=== PATIENT | female | born 1965 | race Caucasian/White ===

== ENCOUNTER 2021-12-03 05:46 | Day surgery (SDC) | payer MEDICAID ==
[2021-11-26 15:22] LABS: BASOPHILS # (AUTO) 0.1 X10'3 (0-0.2); BASOPHILS % (AUTO) 0.7 % (0-1); EOSINOPHILS # (AUTO) 0.3 X10'3 (0-0.9); EOSINOPHILS % (AUTO) 3.4 % (0-6); LYMPHOCYTES # (AUTO) 2.9 X10'3 (1.1-4.8); MEAN CORPUSCULAR HEMOGLOBIN 30.7 PG (27.0-31.0); MEAN CORPUSCULAR HGB CONC 33.6 g/dL (33.0-36.5); MEAN CORPUSCULAR VOLUME 91.5 FL (78-98); MONOCYTES # (AUTO) 0.6 X10'3 (0-0.9); MONOCYTES % (AUTO) 7.6 % (2-12); NEUTROPHILS # (AUTO) 3.8 X10'3 (1.8-7.7); NEUTROPHILS % (AUTO) 50.3 % (42-75); PRE OP HEMATOCRIT 46.3 % (35.0-45.0); PRE OP HEMOGLOBIN 15.5 g/dL (12.0-16.0); PRE OP PLATELET COUNT 238 X10'3 (140-440); RED BLOOD COUNT 5.06 X10'6 (4.20-5.60); RED CELL DISTRIBUTION WIDTH 14.3 % (11.5-14.5)
[2021-11-26 15:38] LABS: ALBUMIN 3.9 G/DL (3.4-5.0); ALKALINE PHOSPHATASE 86 IU/L (46-116); BLOOD UREA NITROGEN 16 MG/DL (7-18); BUN/CREATININE RATIO 19.5 (6.6-38.0); CALCIUM 10.3 MG/DL (8.5-10.1); CHLORIDE 104 MMOL/L (99-107); CREATININE 0.82 MG/DL (0.40-0.90); PRE OP ALT 32 U/L (30-65); PRE OP ANION GAP 9 (8-16); PRE OP AST 16 U/L (10-37); PRE OP BILIRUB, TOTAL 0.3 MG/DL (0.0-1.0); PRE OP GLUCOSE 155 MG/DL (70-104); PRE OP POTASSIUM 3.9 MMOL/L (3.4-5.1); PRE OP SODIUM 141 MMOL/L (135-145); TOTAL CARBON DIOXIDE 27.8 MMOL/L (24-32); TOTAL PROTEIN 7.9 G/DL (6.4-8.2); eGFR 72 ML/MIN
[~2021-12-03] VITALS: Ht 160 cm; Wt 148.8 kg
[2021-12-03] VITALS (7 sets, daily range): BP systolic 122–154; BP diastolic 64–98
[~2021-12-03 05:46] MED LIST: ERTU5TAB PO; GLIM2TAB6 PO; INSU100I31 SQ; LOSA50TA64 PO; famotidine 20mg tablet PO ONE; ringers solution, lacted 1,000 ML IV SCH
[2021-12-03] MEDS ORDERED: BUPIVAcaine/PF 2.5 mg/ml (0.25%) 30ml vial ONE (06:36)
[2021-12-03] MEDS ORDERED: LIDOcaine 0.5% (5mg/ml) 50ml vial ONE (07:12)
[2021-12-03] MEDS ORDERED: fentaNYL/PF 50MCG/1 ML 2ML syringe ONE (07:22)
[2021-12-03] MEDS ORDERED: midazolam 1 mg/ML 2ml injection ONE (07:25)
[2021-12-03] MEDS ORDERED: hydrALAZINE 20mg/ml inj. IV PRN (07:30)
[2021-12-03] MEDS ORDERED: labetalol 20mg/4ml (5mg/ml) syringe IV PRN (07:30)
[2021-12-03] MEDS ORDERED: morphine 2 MG/ML inj. syringe IV PRN (07:30)
[2021-12-03] MEDS ORDERED: proCHLORperazine 10 MG/2 ml inj IV PRN (07:30)
[2021-12-03] MEDS ORDERED: ringers solution, lacted 1,000 ML IV SCH (07:30)
[2021-12-03] MEDS ORDERED: ondansetron/PF 4mg/2ml inj IV PRN (07:30)
[2021-12-03] MEDS ORDERED: meperidine/PF 25mg/ml syringe IV PRN ×3 (07:30)
[2021-12-03] MEDS ORDERED: morphine 4 MG/ML inj SYRINge IV PRN (07:30)
[2021-12-03] MEDS ORDERED: ketorolac tromethamine 15mg/ml inj. IV ONE (07:30)
[2021-12-03] MEDS ORDERED: ceFAZolin inj. 2,000 MG in dextrose 5%-water 100 ML IV ONE (07:34)
[2021-12-03] MEDS ORDERED: clindamycin-Cleocin 900mg/D5W 50 ML IV ONE (07:39)
[2021-12-03] MEDS ORDERED: propofol inj 20 ML IV ONE (07:49)
[2021-12-03] MEDS ORDERED: BUPIVAcaine/PF 2.5 mg/ml (0.25%) 30ml vial IJ ONE (07:54)
--- NOTE | 2021-12-03 08:07 | NUR ---
Received from OR via [facility], accompanied by Anesthesiologist and report given by BA Anesthesiologist. PATIENT WAKING UP, DENIES PAIN, V/S WNL, PIV 20G TO R HAND, LEFT WRIST DRESSING CDI. ICE AND ELEVATED LUE. Addendum: 12/03/21 at 0825 by Malcolm Sheth RN Amended: Links added.
[2021-12-03] MEDS ORDERED: HYDROcodone/acetaminophen 10/325mg tab PO PRN (08:10)
--- NOTE | 2021-12-03 08:57 | NUR ---
ALL DISCHARGE CRITERIA HAS BEEN MET. VSS, PAIN AT A TOLERABLE LEVEL, ABLE TO SAFELY AMBULATE AND TRANSFER SELF. IV TAKEN OUT WITHOUT ANY COMPLICATIONS. ALL DISCHARGE INSTRUCTIONS COVERED WITH PATIENT AND ALL QUESTIONS ANSWERED. PATIENT TAKEN OUT VIA WHEELCHAIR WITH ALL BELONGINGS TO PERSONAL VEHICLE WHERE FAMILY DROVE PATIENT HOME. Addendum: 12/03/21 at 0908 by Malcolm Sheth RN Amended: Links added.
[2021-12-03] MEDS ORDERED: insulin glargine (Lantus) pen - multi-dose SQ SCH (21:00)
[2021-12-04] MEDS ORDERED: glimepiride 1 MG tablet PO SCH (08:00)
[2021-12-04] MEDS ORDERED: losartan 50mg tablet PO SCH (08:00)
[2021-12-04] MEDS ORDERED: ERTUGLIFLOZIN PIDOLATE 5 MG PO SCH (08:00)
== END 2021-12-03 08:57 | disposition home or self-care (01) ==
LOC: PAS 05:46
PROVIDERS: ATTEND Orthopaedic Surgery
DX: G56.02 Carpal tunnel syndrome, left upper limb (principal); Z79.899 Other long term (current) drug therapy; Z87.891 Personal history of nicotine dependence; Z98.890 Other specified postprocedural states; Z90.710 Acquired absence of both cervix and uterus
CPT/HCPCS: 36415; 64721; 80053; 82948; 85025; 87811; 93005; A6222; J1815; J2250; J2704; J3010; J3490; J7030; J7120; Z7506; Z7512; A4215; A6449; A7000